=== PATIENT | male | born 2000 | race Caucasian/White ===

== ENCOUNTER 2022-11-02 00:51 | Emergency (ER) | payer SELFPAY ==
[2022-11-02] VITALS (22 sets, daily range): BP systolic 128–154; BP diastolic 78–91; PULSE 71–100; RESP 14–18; TEMP 36.4; O2SAT 95–100; BMI 20.2
--- NOTE | 2022-11-02 01:16 | EDS_ITS ---
HPI History of Present Illness Chief Complaint: Suicidal Narrative Narrative: Patient was found in a car with the windows up, car running and a hose from the exhaust to the car. He tells me he has been going through quite a bit and was trying to kill himself. 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 He is not taking any make medications no prior suicide attempts. PFSH PFSH Home Medications NK 11/02/22 [History Last Taken Unknown] Allergy/AdvReac Type Severity Reaction Status Date / Time bee venom protein (honey bee) Allergy Anaphylaxis Verified 11/02/22 00:58 [bee sting] Social History Smoking Status: Never smoker ROS ROS ED ROS Narrative Past medical history: Reviewed Medications: Reviewed Social history: Noncontributory Review of systems: All systems negative except as indicated General: No fever Eyes: No visual changes ENT: No upper airway congestion, normal voice Neck: No neck pain Cardiovascular: No chest pain Respiratory: No shortness of breath or cough Gastrointestinal: No abdominal pain, nausea vomiting or diarrhea Genitourinary: No dysuria Musculoskeletal: Denies myalgias no difficulty with ambulation Skin: No rash Neurological: No memory loss, confusion or any focal weakness Psych: As in HPI Hematologic: No easy bleeding or easy bruising EXAM Physical Exam Narrative Exam Narrative: Physical exam General: Well nourished, Well developed, No Acute Distress Head: Normocephalic, Atraumatic Eyes: Conjunctiva not pale ENT: Moist mucous membranes Neck: Supple, Nontender, No lymphadenopathy Cardiovascular: Regular rate, Regular rhythm Respiratory: No distress, CTA bilaterally Abdomen: Soft, Nontender, Nondistended Back: Nontender, Normal Inspection. Negative for: CVA tenderness Extremities: Nontender, No edema Skin: Normal color, No rash Neurological: Alert, Normal Strength, Normal Sensation Psychological: Sad and depressed affect. Const Vital Signs: 11/02/22 00:52 Temperature 97.6 F L Temperature Source Temporal Pulse Rate 100 Respiratory Rate 16 Blood Pressure 154/91 H Blood Pressure Mean 112 Pulse Ox 100 Oxygen Delivery Method Room Air MDM MDM MDM Narrative Medical decision making narrative: Patient be discussed with crisis. He will need placement for suicidal ideations. He is medically cleared, CBC CMP drug screen and alcohol were interpreted by me. He has high risk from the suicidal standpoint demonstrated tonight by his willingness to take his life. Discharge Plan Triage Chief Complaint: Suicidal ED Provider: Provider,Ed Physician Dx/Rx/DC Orders Clinical Impression: Depression, Suicide attempt, Suicidal ideations Prescriptions: No Action NK Primary Care Provider: Lety Shoemaker Referrals: Lety Shoemaker, [Primary Care Provider] - Disposition Disposition: Psychiatric Hospital or Unit
[2022-11-02 01:27] LABS: Absolute Lymphocyte Count 2.64 X10^3/uL (0.83-4.51); Absolute Neutrophil Count 5.3 X10^3/uL (2.0-7.7); Basophil# 0.05 X10^3/uL; Basophil% 0.6 % (0-1); Eosinophil# 0.09 X10^3/uL; Lymphocyte # 2.64 X10^3/ul (0.83-4.51); Lymphocyte % 29.9 % (19-41); Mean Corp Hgb Conc 34.7 g/dL (32-36); Mean Corpuscular Hgb 29.6 pg (27.0-32.0); Mean Corpuscular Volume 85.4 fL (80-94); Mean Platelet Vol. 9.8 fl (6.2-12.0); Monocyte# 0.73 X10^3/uL; Monocyte% 8.3 % (0-10); NRBC Flagged by Analyzer 0 % (0-5); Neutrophil # 5.31 X10^3/uL (2.7-7.7); Platelet Count 257 K/mm3 (150-450); RBC Distribution Width CV 11.5 % (11.6-14.6); RBC Distribution Width SD 35.3 fl (35.1-43.9); Red Blood Count 5.74 M/mm3 (4.6-6.2); White Blood Count 8.8 K/mm3 (4.4-11.0)
[2022-11-02 01:41] LABS: Alcohol, Blood (Medical)-Serum < 3.0 mg/dL
[2022-11-02 01:42] LABS: Anion Gap 5 (5-15); BUN 11 mg/dL (7-18); BUN/Creat Ratio 9.9 RATIO (10-20); Calcium,Total 9.8 mg/dL (8.5-10.1); Chloride 103 mmol/L (98-107); Creatinine, Serum 1.11 mg/dL (0.70-1.30); EST Glomerular Filtration Rate 88 mL/min (>60); Est Glom Filt Rate - Afr Amer 106 mL/min (>60); Estimated Creatinine Clearance 89.18 ml/min; Glucose 99 mg/dL (74-106); Potassium 3.4 mmol/L (3.5-5.1); Sodium Level 139 mmol/L (136-145)
[2022-11-02 01:58] LABS: Amphetamine Urine VISTA NEGATIVE (<1000 ng/mL); Barbiturate Urine VISTA NEGATIVE (< 200 ng/mL); Benzodiazepine Urine VISTA NEGATIVE (< 200 ng/mL); Cocaine Urine VISTA NEGATIVE (< 300 ng/mL); Ecstacy Urine VISTA NEGATIVE (< 500 ng/mL); Methadone Urine VISTA NEGATIVE (< 300 ng/mL); PCP Urine VISTA NEGATIVE (< 25 ng/mL); THC Urine VISTA NEGATIVE (< 50 ng/mL); Vista UDS pH Range 6
--- NOTE | 2022-11-02 02:01 | NURSING ---
CALLED CRISIS AT [phone]
--- NOTE | 2022-11-02 03:18 | ED.RN ---
crisis is working on placing patient at this time
--- NOTE | 2022-11-02 08:35 | CM.ED ---
Social Work SW spoke with crisis who reports patient has been referred to [place] for psychiatric placement due to patient having no insurance. Melinda Carranza CYLINDER MACHINE OPERATOR, TELEGRAPH PLANT MAINTAINER
--- NOTE | 2022-11-02 13:33 | ED.RN ---
[facility] CALLED AND SAID THEY ARE ASSESSING THE PATIENTS CHART. WILL LET US KNOW IF HE IS ACCEPTED
--- NOTE | 2022-11-02 14:24 | EKG12_ITS ---
Test Reason : Blood Pressure : / mmHG Vent. Rate : 079 BPM Atrial Rate : 079 BPM P-R Int : 170 ms QRS Dur : 096 ms QT Int : 342 ms P-R-T Axes : 063 104 011 degrees QTc Int : 392 ms Normal sinus rhythm Rightward axis Borderline ECG Confirmed by KARYN ADAMS, JIGAR ([id number]), purchasing expeditor DELICIA PATEL ([id number]) on 11/05/2022 10:59:58 AM Referred By: ALBER Confirmed By:JIGAR BOSS MD
--- NOTE | 2022-11-02 14:27 | ED.RN ---
[facility] CALLS REQUESTING EKG AND LIVER PROFILE RESULTS TO BE FAXED TO [phone]. RESPIRATORY NOTIFIED OF EKG. LIVER PANEL RESULTS PENDING. VALVE SEATER OPERATOR TO FAX WHEN RESULTED.
[2022-11-02 14:52] LABS: AST(SGOT) 12 U/L (15-37); Alanine Aminotransfer ALT/SGPT 20 U/L (16-61); Albumin, Serum 4.6 g/dL (3.2-5.0); Alkaline Phosphatase 74 U/L (45-117); Bilirubin, Direct 0.19 mg/dL (0.00-0.30); Protein, Total 7.6 g/dL (6.4-8.2)
--- NOTE | 2022-11-02 17:57 | CM.ED ---
Social Work SW spoke with Betzaida from Crisis regarding patient awaiting admission to [facility]. Betzaida reports she will follow up with [facility]. Melinda Carranza HVAC R TECH, FHA UNDERWRITER
[2022-11-03] VITALS (9 sets, daily range): BP systolic 108–121; BP diastolic 60–85; PULSE 60–87; RESP 16–18; TEMP 36.6; O2SAT 95–97
--- NOTE | 2022-11-03 03:42 | ED.RN ---
ATTEMPT TO CALL REPORT TO [facility] WAS INFORMED THAT THE PLACEMENT OF THE PT IS NOT SET AND THAT [facility] WOULD CALL AFTER 7 WITH ROOM AND FLOOR ASSIGNMENT. WAS TOLD NOT TO SET UP TIME OF ARRIVAL BEFORE 10AM.
--- NOTE | 2022-11-03 11:04 | ED.RN ---
LEFT MESSAGE FOR OSS ARCHITECT AT [facility]. INQUIRING ABOUT WHEN BED AVAILABLE 11:00 AM 11/03/22
--- NOTE | 2022-11-03 12:29 | ED.RN ---
spoke with admissions nurse at [facility], she stated that he has been excepted by the physician but they are processing other admissions, it will be later today or tomorrow before he has a room.
--- NOTE | 2022-11-03 12:34 | ED.RN ---
Sol from [facility] called asked what time pt would arrive after transportation was arranged. I told her I would have to call the counseling center and find out. We are to call Sol back once we have an idea. Sol stated they dont want the pt at 1500 or shift change. Counseling center called, waiting mechanic general operational test back.
--- NOTE | 2022-11-03 12:53 | ED.RN ---
spoke with elio at the counseling center, she is calling zander at [facility]. elio will call us back.
== END 2022-11-03 14:47 ==
PROVIDERS: Emergency Medicine; Emergency Provider Emergency Medicine; PCP Family Medicine; Visit Provider Emergency Medicine
DX: T14.91XA Suicide attempt, initial encounter (principal); F32.A Depression, unspecified; X58.XXXA Exposure to other specified factors, initial encounter
CPT/HCPCS: 36415; 80048; 80076; 80307; 82077; 85025; 87811; 93005; 99285